=== PATIENT | male | born 1990 | race Caucasian/White ===

== ENCOUNTER 2019-05-14 10:47 | Emergency (ER) | payer OTHER, MEDICAID ==
[~2019-05-14] VITALS: Ht 172.7 cm; Wt 53.5 kg
[2019-05-14 10:50] VITALS: BP 116/71
--- NOTE | 2019-05-14 10:55 | NUR ---
PT AMBULATED TO ER BED 05
--- NOTE | 2019-05-14 11:00 | NUR ---
PT TO ED WITH C/O APPROX 1 CM SCAP LACERATION X THIS AM. NO ACTIVE BLEEDING NOTED. PT DENIES LOC. TDAP UP TO DATE. NO DISTRESS NOTED. PT IN BED FOR MD MURRAY.
--- NOTE | 2019-05-14 11:13 | NUR ---
Note jeremias in ED - 05/14/19 at 1155 by KOFI MEDICATED ORDERED FOR PAIN. WILL CONTINUE TO ASSESS. VS REMAIN STABLE.
[2019-05-14 11:59] VITALS: BP 116/71
== END 2019-05-14 11:59 | disposition home or self-care (01) ==
LOC: MED 10:47
DX: S01.01XA Laceration without foreign body of scalp, initial encounter (principal); W20.8XXA Other cause of strike by thrown, projected or falling object, initial encounter; Y93.89 Activity, other specified; Y92.59 Other trade areas as the place of occurrence of the external cause; Y99.8 Other external cause status
CPT/HCPCS: 12001; 90471; 90715; 99283